=== PATIENT | male | born 1970 | race Caucasian/White ===

== ENCOUNTER → 2017-08-05 | Outpatient (CLI) | payer OTHER ==
--- NOTE | 2017-08-06 10:34 | MR ---
EXAMINATION TYPE: MR lumbar spine wo con DATE OF EXAM: 08/06/2017 6:15 AM COMPARISON: NONE HISTORY: lumbar pain, left leg pain Multiplanar, MultiSpin echo imaging of the lumbar spine was performed. There is a transitional vertebral segment with partial lumbarization of S1 suspected with rudimentary S1-S2 disc. Prior to any scheduled procedures radiographic correlation is advised. L1-L2: Normal disc appearance without desiccation. No herniation, protrusion or disc bulging. No ca nal stenosis is present. Foramina are patent bilaterally. L2-L3: Normal disc appearance without desiccation. No herniation, protrusion or disc bulging. No ca nal stenosis is present. Foramina are patent bilaterally. L3-L4: Normal disc appearance without desiccation. No herniation, protrusion or disc bulging. No ca nal stenosis is present. Foramina are patent bilaterally. L4-L5: Moderate disc desiccation. Circumferential disc bulge with mild effacement of the ventral thec al sac. No evidence for central stenosis or lateral recess stenosis. Mild facet joint arthropathy wit h mild left foraminal encroachment. L5-S1: Borderline to mild disc desiccation. Minimal posterior central disc bulge. No herniation protr usion or central stenosis. No lateral recess stenosis or foraminal encroachment. Lumbar segments are intact. No paraspinal masses are identified. Conus medullaris has a normal appe arance. IMPRESSION: 1. Transitional segment. 2. Degenerative disc disease greatest at L4-5 with posterior disc bulging as noted.
== END | disposition home or self-care (01) ==
LOC: RADMRIMAIN 20:57
PROVIDERS: ATTEND Family Medicine
DX: M51.16 Intervertebral disc disorders with radiculopathy, lumbar region (principal)
CPT/HCPCS: 72148

== ENCOUNTER → 2018-07-19 | Outpatient (CLI) | payer OTHER ==
--- NOTE | 2018-07-20 07:39 | ECHOS ---
STRESS ECHOCARDIOGRAM DATE OF SERVICE: 07/19/2018 INDICATIONS: Chest pain. MEDICATIONS: Flexeril. BASELINE HEART RATE: 51 BASELINE BLOOD PRESSURE: 100/55 MAXIMUM HEART RATE: 161 MAXIMUM BLOOD PRESSURE: 207/66 85% MPHR: 145 100% MPHR: 171 METS: 12.1 MAXIMUM STAGE REACHED: IV TOTAL EXERCISE TIME: 12 minutes CLINICAL INFORMATION: Baseline EKG revealed a normal sinus rhythm without significant ST-T changes. Patient walked for 12 minutes on a standard Shayan protocol, achieved a maximal heart rate of 161 beats per minute which is more than 85% of predicted maximal. Resting blood pressure was 100/55. Peak blood pressure was 207/66. EKG did not reveal any ST- segment changes to indicate ischemia. By EKG criteria, this is a negative stress test with excellent exercise capacity without angina or any arrhythmia. Baseline echo images revealed normal wall motion and wall thickening of all segments. At peak exercise, there was good augmentation of left ventricular wall motion and wall thickening of all segments suggesting that there is no evidence of stress-induced ischemia on this study. FINAL IMPRESSION: 1. Excellent exercise capacity with a negative stress test by EKG criteria. Patient walked for 12 minutes on a standard Shayan protocol. 2. Normal stress echocardiogram. MMODL / IJN: [id number] /
== END ==
LOC: RADNMMAIN 09:47
PROVIDERS: ATTEND Family Medicine
DX: R07.9 Chest pain, unspecified (principal)
CPT/HCPCS: 93351

== ENCOUNTER → 2018-08-03 | Outpatient (CLI) | payer OTHER ==
[2018-08-03 14:21] LABS: Basophils # (A) 0.1 k/uL (0-0.2); Basophils % (A) 1 %; Eosinophils # (A) 0.7 k/uL (0-0.7); Eosinophils % (A) 10 %; HCT 48.1 % (39.0-53.0); HGB 16.5 gm/dL (13.0-17.5); Lymphocytes # (A) 1.8 k/uL (1.0-4.8); Lymphocytes % (A) 27 %; MCH 31.1 pg (25.0-35.0); MCHC 34.3 g/dL (31.0-37.0); MCV 90.5 fL (80.0-100.0); Mean Platelet Volume 6.8; Monocytes # (A) 0.4 k/uL (0-1.0); Monocytes % (A) 6 %; Neutrophils # (A) 3.6 k/uL (1.3-7.7); Neutrophils % (A) 53 %; Platelet Count 273 k/uL (150-450); RBC 5.31 m/uL (4.30-5.90); RDW 13.1 % (11.5-15.5); WBC 6.9 k/uL (3.8-10.6)
[2018-08-03 20:07] LABS: Albumin 4.5 g/dL (3.80-4.90); Albumin/Globulin Ratio 2.37 (1.20-2.10); Anion Gap 9.7 mmol/L (4.00-12.00); Calcium 9.4 mg/dL (8.7-10.3); Carbon Dioxide 28.3 mmol/L (21.6-31.8); Globulin 1.9 g/dL (1.6-3.3); LDL Cholesterol,Calculated 117.2 mg/dL (0.0-131.0); Potassium 5.1 mmol/L (3.5-5.5); Total Bilirubin 2.2 mg/dL (0.3-1.2); Total Protein 6.4 g/dL (6.2-8.2); VLDL Calculation 18.8 mg/dL (5.00-40.00)
== END | disposition home or self-care (01) ==
LOC: LABWHC1 13:02
PROVIDERS: ATTEND Family Medicine
DX: Z00.00 Encounter for general adult medical examination without abnormal findings (principal); Z12.5 Encounter for screening for malignant neoplasm of prostate
CPT/HCPCS: 36415; 80053; 80061; 84153; 84443; 85025

== ENCOUNTER 2020-03-06 18:57 | Emergency (ER) | payer OTHER ==
[2020-03-06 19:11] VITALS: RESP 18
[2020-03-06] MEDS ORDERED: DIPH,PERTUS(ACELL)TETVAC-LF 0.5 ML VIAL IM ONE (19:29)
--- NOTE | 2020-03-06 19:48 | ED ---
General Adult HPI - General Chief complaint: Wound/Laceration Stated complaint: head lac Time Seen by Provider: 03/06/20 19:14 Source: patient, RN notes reviewed, old records reviewed Mode of arrival: ambulatory Limitations: no limitations - History of Present Illness Initial comments: 49-year-old male patient presents ED for evaluation. Patient reports that he was installing a piece of metal which fell hitting him in the head. Denies any loss of consciousness. Reports a mild headache. vision is at baseline. Denies any neck pain. Does not know date of last tetanus does have a laceration. Systemic: Pt denies fatigue, fever/chills, rash. Pt denies weakness, night sweats, weight loss. Neuro: Pt denies syncope or pre-syncope. HEENT: Pt denies ocular discharge or irritation, otalgia, rhinorrhea, pharyngitis or notable lymphadenopathy. Cardiopulmonary: Pt denies chest pain, SOB, heart palpitations, dyspnea on exertion. Abdominal/GI: Pt denies abdominal pain, n/v/d. : Pt denies dysuria, burning w/ urination, frequency/urgency. Denies new onset urinary or bowel incontinence. MSK: Pt denies myalgia, loss of strength or function in extremities. Neuro: Pt denies new onset weakness, paresthesias. - Related Data Home Medications Medication Instructions Recorded Confirmed No Known Home Medications 04/21/16 04/23/16 Allergies Allergy/AdvReac Type Severity Reaction Status Date / Time No Known Allergies Allergy Verified 03/06/20 19:10 Review of Systems ROS Statement: Those systems with pertinent positive or pertinent negative responses have been documented in the HPI. ROS Other: All systems not noted in ROS Statement are negative. Past Medical History Past Medical History: GERD/Reflux History of Any Multi-Drug Resistant Organisms: None Reported Past Surgical History: Appendectomy Additional Past Surgical History / Comment(s): EGD Past Anesthesia/Blood Transfusion Reactions: No Reported Reaction Past Psychological History: No Psychological Hx Reported Smoking Status: Never smoker Past Alcohol Use History: Occasional Past Drug Use History: None Reported - Past Family History Mother Family Medical History: No Reported History General Exam - General Exam Comments Initial Comments: Constitutional: NAD, AOX3, Pt has pleasant affect. HEENT: NC/AT, trachea midline, neck supple, no lymphadenopathy. External ears appear normal, without discharge. Mucous membranes moist. Eyes PERRLA, EOM intact. There is no scleral icterus. No pallor noted. Cardiopulmonary: RRR, no murmurs, rubs or gallops, no JVD noted. Lungs CTAB in anterior and posterior harris. No peripheral edema. Abdominal exam: Abdomen soft and non-distended. Abdomen non-tender to palpation in all 4 quadrants. No hepatosplenomegaly. No ecchymosis Neuro: CN II-XII intact. No nuchal rigidity. No raccon eyes, no coto sign, no hemotympanum. No cervical spinal tenderness. MSK: Sensation intact in upper and lower extremities. Full active ROM in upper and lower extremities, 5/5 stregnth. Limitations: no limitations Course Vital Signs 03/06/20 19:05 Temperature 98.4 F Pulse Rate 50 L Respiratory 18 Rate Blood Pressure 115/73 O2 Sat by Pulse 98 Oximetry Procedures - Laceration Laceration #1 Consent Obtained: verbal consent Site: scalp Size (cm): 4 Description: linear Depth: simple, single layer Pre-repair: wound explored, irrigated extensively Type of Sutures: other (staple) Size of Sutures: other (staple) Number of Sutures: 4 Patient Tolerated Procedure: well, no complications Medical Decision Making - Medical Decision Making 49-year-old male patient. See for evaluation after a piece of metal he was installing a ceiling fell down hit him in the head. Patient does have a 4 cm laceration which was irrigated and approximated with [address] brain C- spine did not display acute process. Neurologic exam is intact. Patient discharged with outpatient follow-up with primary care provider and return precautions. Case discussed with Dr. Farnsworth. Disposition Clinical Impression: Laceration Disposition: HOME SELF-CARE Condition: Stable Instructions (If sedation given, give patient instructions): Laceration (ED) Additional Instructions: Follow up with PCP tomorrow. Return to ED if condition worsens. Please return for staple removal: Scalp: 7 days Please monitor for signs and symptoms of infection including: redness, warmth, drainage, discharge. Please return to ED if these signs or symptoms occur, new signs or symptoms develop or if condition worsens in anyway. Is patient prescribed a controlled substance at d/c from ED?: No Referrals: Javed Walters MD [Primary Care Provider] - 1-2 days
--- NOTE | 2020-03-06 20:05 | CT ---
EXAMINATION TYPE: CT brain sandra quiñones DATE OF EXAM: 03/06/2020 COMPARISON: None HISTORY: Steel bar hit patient top of head. Head laceration. Denies LOC CT DLP: 1736.[address] of the brain was performed. The ventricles, basal cisterns and sulci overlying the cerebral convexities demonstrate minimal enlar gement. There is no evidence for intracranial hemorrhage or sulcal effacement. There is decreased attenuatio n about the periventricular white matter and deep white matter of both cerebral hemispheres, compatib le with chronic small vessel ischemia. No mass effects are seen. If symptoms persist consider MRI. Osseous calvarium is intact. Mild chronic sinusitis. IMPRESSION: 1. Age related atrophic and chronic small vessel ischemic change without acute intracranial process seen at this time. CT Cervical Spine: Unenhanced CT of the cervical spine was performed with bone and soft tissue window settings submitted . Coronal and sagittal reconstruction is obtained. There is normal alignment and prevertebral soft tissues. No evidence for acute cervical fracture . Scattered degenerative disc disease and spondylosis. Biapical scarring. IMPRESSION: 1. No evidence for acute fracture or subluxation of the cervical spine.
[2020-03-06] MEDS ORDERED: Acetaminophen-Codeine 300-30mg TAB PO STA (20:21)
[2020-03-06 20:43] VITALS: BP 115/86; PULSE 60; TEMP 97.9
== END 2020-03-06 20:43 | disposition home or self-care (01) ==
LOC: EC 18:57
DX: S01.01XA Laceration without foreign body of scalp, initial encounter (principal)
CPT/HCPCS: 12002; 70450; 72125; 90471; 90715; 99284

== ENCOUNTER → 2020-04-11 | Outpatient (CLI) | payer OTHER ==
--- NOTE | 2020-04-11 09:32 | CT ---
EXAMINATION TYPE: CT chest wo con DATE OF EXAM: 04/11/2020 COMPARISON: CT cervical spine March 06, 2020 HISTORY: Abn CT of cervical spine, pulmonary nodules per order. CT DLP: 515 mGycm. Automated Exposure Control for Dose Reduction was Utilized. TECHNIQUE: CT scan of the thorax is performed without IV contrast. FINDINGS: LUNGS: Mild biapical pleural/parenchymal scarring is redemonstrated with slightly nodular component i n the apices bilaterally. For reference 5 x 4 mm area coronal image 41. No suspicious pulmonary nodul es or masses identified bilaterally. No suspicious focal consolidation or groundglass opacity. No ple ural effusion or pneumothorax seen bilaterally. MEDIASTINUM: Lack of IV contrast is noted to limit evaluation for mediastinal and especially hilar ad enopathy. There are no definitive greater than 1 cm hilar or mediastinal lymph nodes. No cardiomega ly or pericardial effusion is seen. OTHER: Focal levoconvex scoliosis centered in the upper thoracic spine is redemonstrated. Spine is st raightened on sagittal images. IMPRESSION: No suspicious nodules or masses. Symmetric apical changes bilaterally favor postinflammat ory scarring. Consider follow-up chest CT in one year time to document stability.
== END | disposition home or self-care (01) ==
LOC: RADCTMAIN 08:12
PROVIDERS: ATTEND Family Medicine
DX: R91.8 Other nonspecific abnormal finding of lung field (principal)
CPT/HCPCS: 71250

== ENCOUNTER → 2021-05-24 | Outpatient (CLI) | payer OTHER ==
--- NOTE | 2021-05-25 00:51 | MR ---
EXAMINATION TYPE: MR shoulder RT wo con DATE OF EXAM: 05/24/2021 COMPARISON: None HISTORY: Right shoulder pain for 3 months. Multiplanar multiecho imaging of the right shoulder without contrast. Subscapularis tendon appears intact. Glenoid deion appear intact. The biceps tendon is intact. There is small amount of fluid in the subdeltoid bursa. There is slight thickening and increased sign al in the supraspinatus tendon. There is no retraction. Humeral head is intact. The AC joint is intact. There is no significant subacromial impingement. IMPRESSION: Mild increased signal within the supraspinatus tendon suggestive of some mild intrasubstance tearing. No full-thickness tear. Mild subdeltoid effusion consistent with some bursitis.
== END | disposition home or self-care (01) ==
LOC: RADMRIMAIN 21:36
PROVIDERS: ATTEND Physician Assistant
DX: M75.51 Bursitis of right shoulder (principal)

== ENCOUNTER 2022-11-26 07:08 | Observation (INO) | payer OTHER ==
[2022-11-26 07:15] VITALS: TEMP 97.9
[2022-11-26] MEDS ORDERED: MAG HYDROX/AL HYDROX/SIMETH 30 ML CUP PO STA (07:28)
[2022-11-26] MEDS ORDERED: ASPIRIN 81 MG PO STA (07:28)
[2022-11-26 07:53] LABS: Basophils # (A) 0.1 k/uL (0-0.2); Basophils % (A) 1 %; Eosinophils # (A) 0.4 k/uL (0-0.7); Eosinophils % (A) 6 %; HCT 46.1 % (39.0-53.0); Lymphocytes # (A) 1.4 k/uL (1.0-4.8); Lymphocytes % (A) 25 %; MCH 31.6 pg (25.0-35.0); MCHC 34.7 g/dL (31.0-37.0); MCV 91.1 fL (80.0-100.0); Mean Platelet Volume 7.3; Monocytes # (A) 0.3 k/uL (0-1.0); Monocytes % (A) 6 %; Neutrophils # (A) 3.4 k/uL (1.3-7.7); Neutrophils % (A) 60 %; Platelet Count 269 k/uL (150-450); RBC 5.06 m/uL (4.30-5.90); RDW 12.4 % (11.5-15.5); WBC 5.6 k/uL (3.8-10.6)
[2022-11-26 08:02] LABS: INR 1.1 (<1.2); Partial Thromboplastin Time 24.1 sec (22.0-30.0); Prothrombin Time 11.6 sec (9.0-12.0)
[2022-11-26 08:08] LABS: ALT 23 U/L (4-49); AST 23 U/L (17-59); African American GFR (CKD) >90 (>60 ml/min/1.73 sqM); Albumin 4.3 g/dL (3.5-5.0); Alkaline Phosphatase 63 U/L (38-126); Anion Gap 6 mmol/L; Blood Urea Nitrogen 12 mg/dL (9-20); Calcium 9.1 mg/dL (8.4-10.2); Carbon Dioxide 29 mmol/L (22-30); Chloride 104 mmol/L (98-107); Glucose 108 mg/dL (74-99); Lipase 87 U/L (23-300); Magnesium 1.9 mg/dL (1.6-2.3); Non-African American GFR(CKD) >90 (>60 ml/min/1.73 sqM); Potassium 4.1 mmol/L (3.5-5.1); Sodium 139 mmol/L (137-145); Total Protein 6.7 g/dL (6.3-8.2)
--- NOTE | 2022-11-26 08:10 | XR ---
EXAMINATION TYPE: XR chest 2V DATE OF EXAM: 11/26/2022 COMPARISON: NONE TECHNIQUE: PA and lateral views submitted. HISTORY: Chest Pain FINDINGS: The lungs are clear and there is no pneumothorax, pleural effusion, or focal pneumonia. Heart size normal and no overt failure. Osseous structures demonstrate hypertrophic and degenerative changes of the spine. IMPRESSION: 1. No acute process.
--- NOTE | 2022-11-26 08:27 | ED ---
Chest Pain HPI - General Chief Complaint: Chest Pain Stated Complaint: chest pain Time Seen by Provider: 11/26/22 07:17 Source: patient, RN notes reviewed Mode of arrival: ambulatory Limitations: no limitations - History of Present Illness Initial Comments: 52-year-old male presents emergency Department with chief complaint of chest pain. Patient states he has some symptoms yesterday in which he related this to eating some food. Patient states she does have reflux. He states he got better but woke this morning and started having discomfort again substernal chest pain. Patient states he had a stress test 9 years ago which was normal at that time. Patient states he has been excising of recent last few years. Patient denies any prior cardiac disease denies being a smoker. - Related Data Home Medications Medication Instructions Recorded Confirmed No Known Home Medications 04/21/16 11/26/22 Allergies Allergy/AdvReac Type Severity Reaction Status Date / Time No Known Allergies Allergy Verified 11/26/22 08:17 Review of Systems ROS Statement: Those systems with pertinent positive or pertinent negative responses have been documented in the HPI. ROS Other: All systems not noted in ROS Statement are negative. EKG Findings - EKG Comments: EKG Findings:: EKG performed at 17:22 sinus bradycardia rate of 57 VT 153 QRS 77 QT/QTC 403 /397 - EKG Results: EKG: interpreted by ALFREDO Past Medical History Past Medical History: GERD/Reflux History of Any Multi-Drug Resistant Organisms: None Reported Past Surgical History: Appendectomy Additional Past Surgical History / Comment(s): EGD Past Anesthesia/Blood Transfusion Reactions: No Reported Reaction Past Psychological History: No Psychological Hx Reported Smoking Status: Never smoker Past Alcohol Use History: Occasional Past Drug Use History: None Reported - Past Family History Mother Family Medical History: No Reported History General Exam Limitations: no limitations General appearance: alert, in no apparent distress Head exam: Present: atraumatic, normocephalic, normal inspection Eye exam: Present: normal appearance, PERRL, EOMI. Absent: scleral icterus, conjunctival injection, periorbital swelling Neck exam: Present: normal inspection. Absent: tenderness, meningismus, lymphadenopathy Respiratory exam: Present: normal lung sounds bilaterally. Absent: respiratory distress, wheezes, rales, rhonchi, stridor Cardiovascular Exam: Present: regular rate, normal rhythm, normal heart sounds. Absent: systolic murmur, diastolic murmur, rubs, gallop, clicks GI/Abdominal exam: Present: soft, normal bowel sounds. Absent: distended, tenderness, guarding, rebound, rigid Neurological exam: Present: alert Course Vital Signs 11/26/22 11/26/22 07:13 07:34 Temperature 97.9 F Pulse Rate 66 65 Respiratory 18 18 Rate Blood Pressure 134/84 131/85 O2 Sat by Pulse 99 Oximetry Chest Pain MDM - MDM Was pt. sent in by a medical professional or institution (, PA, RECEIVING AND PROCESSING SUPERVISOR, urgent care, hospital, or [facility]...) When possible be specific @ -[No] Did you speak to anyone other than the patient for history (EMS, parent, family, police, friend...)? What history was obtained from this source @ -[No] Did you review nursing and triage notes (agree or disagree)? Why? @ -[I reviewed and agree with nursing and triage notes] Were old charts reviewed (outside hosp., previous admission, EMS record, old EKG, old radiological studies, urgent care reports/EKG's, [facility] records)? Report findings @ -[No old charts were reviewed] Differential Diagnosis (chest pain, altered mental status, abdominal pain women, abdominal pain men, vaginal bleeding, weakness, fever, dyspnea, syncope, headache, dizziness, GI bleed, back pain, seizure, CVA, palpatations, mental health, musculoskeletal)? @ -[Differential Chest Pain: Stable Angina, Unstable Angina, STEMI, NSTEMI Aortic Dissection, Pneumothorax, Musculoskeletal, Esophageal Spasm GERD, Cholecystitis, Pancreatitis, Zoster, this is not meant to be an all-inclusive list. e] EKG interpreted by me (3pts min.). @ -[As above] X-rays interpreted by me (1pt min.). @ -[Chest x-ray shows no acute cardiopulmonary process] CT interpreted by me (1pt min.). @ -[None done] U/S interpreted by me (1pt. min.). @ -[None done] What testing was considered but not performed or refused? (CT, X-rays, U/S, labs)? Why? @ -[None] What meds were considered but not given or refused? Why? @ -[None] Did you discuss the management of the patient with other professionals (professionals i.e. , PA, RECEIVING AND PROCESSING SUPERVISOR, lab, RT, psych nurse, dialysis social worker, transmission maintenance supervisor, teacher, real estate officer, telehealth case manager)? Give summary @ -[Discussed case with [facility] physician Dr. Noland will be admitted for cardiac rule out including cardiology evaluation] Was smoking cessation discussed for >3mins.? @ -[No] Was critical care preformed (if so, how long)? @ -[No] Were there social determinants of health that impacted care today? How? (Homelessness, low income, unemployed, alcoholism, drug addiction, transportation, low edu. Level, literacy, decrease access to med. care, fdc, rehab)? @ -[No] Was there de-escalation of care discussed even if they declined (Discuss DNR or withdrawal of care, Hospice)? DNR status @ -[No] What co-morbidities impacted this encounter? (DM, HTN, Smoking, COPD, CAD, Cancer, CVA, ARF, Chemo, Hep., AIDS, mental health diagnosis, sleep apnea, morbid obesity)? @ -[None] Was patient admitted / discharged? Hospital course, mention meds given and route, prescriptions, significant lab abnormalities, going to OR and other pertinent info. @ -[Admitted patient still has complaints of chest pressure, substernal pain. Patient does have risk factors patiently admitted for cardiac rule out including echocardiogram.] Undiagnosed new problem with uncertain prognosis? @ -[No] Drug Therapy requiring intensive monitoring for toxicity (Heparin, Nitro, Insulin, Cardizem)? @ -[No] Were any procedures done? @ -[No] Diagnosis/symptom? @ -[Chest pain] Acute, or Chronic, or Acute on Chronic? @ -Acute Uncomplicated (without systemic symptoms) or Complicated (systemic symptoms)? @ -Uncomplicated Side effects of treatment? @ -[No] Exacerbation, Progression, or Severe Exacerbation? @ -[No] Poses a threat to life or bodily function? How? (Chest pain, [place], MA, pneumonia, PE, COPD, DKA, ARF, appy, cholecystitis, CVA, Diverticulitis, Homicidal, Suicidal, threat to staff... and all critical care pts) @ -[yes cardiac arrest risk Disposition Clinical Impression: Chest pain Disposition: ADMITTED IP TO THIS HOSP Referrals: Javed Walters MD [Primary Care Provider] - 1-2 days Time of Disposition: 09:01
[2022-11-26] MEDS ORDERED: FAMOTIDINE 20 MG/2 ML VIAL IV STA (09:00)
[2022-11-26] MEDS ORDERED: ONDANSETRON 4 MG/2 ML VIAL IVP STA (09:00)
[2022-11-26] MEDS ORDERED: NITROGLYCERIN SL TABS 0.4 MG TAB SUBLINGUAL PRN (09:20)
[2022-11-26] MEDS ORDERED: CALCIUM CARBONATE 500 MG CHEWABLE PO PRN (11:33)
--- NOTE | 2022-11-26 11:33 | P.HPIM ---
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 Patient says that he hasn't episode of burning chest pain yesterday which she said felt similar to his acid reflux. He said he took some medication slept upright and it seemed to resolve his issue area however, this morning upon driving to work, he started to feel a pressure-like sensation at the base of his chest. He does not describe any radiation to the jaw, to the shoulder. He denies associated symptoms of nausea, vomiting, diaphoresis, palpitations, dyspnea. He further denies fevers, chills, cough, abdominal pain, constipation, diarrhea, dysuria, dyschezia, numbness/weakness of extremities. In the emergency room, patient was afebrile, 123/80, heart rate 53, 97% on room air. CBC is unremarkable. Chemistries are unremarkable. Liver function tests are unremarkable. Initial troponin is less than 0.012, then trended to less than 0.012. Coags are unremarkable. EKG showed sinus bradycardia with no evidence of ischemia, normal axis. Chest x-ray showed clear parenchyma bilaterally, normal sized heart, no evidence of overt heart failure. Case was discussed emergency room provider and decision was made to admit the patient to observation for chest pain rule out. All Systems reviewed and pertinent positives and negatives noted in HPI, all other symptoms are negative Gen: in no apparent distress, resting comfortably in bed Eyes: PERRL, no scleral injection or icterus HENT: normocephalic, atraumatic, good hearing acuity, moist mucous membranes Neck: no tracheal deviation, full range of motion Resp: good air exchange, breathing comfortably with no accessory muscle use, no tactile fremitus CVS: good distal perfusion x 4, no pitting edema GI: soft, NTTP, ND, no hepatosplenomegaly : no suprapubic tenderness, no CVAT, aburto catheter not present MSK: no clubbing, no cyanosis, no noted contractures of extremities Skin: no noted rashes, petechiae; temperature of skin is appropriate Neuro: moving all extremities without signs of weakness, CN II-XII intact Psych: cooperative, euthymic mood, insight and judgment intact Labs and imaging were reviewed as above Assessment: Chest pain, atypical GERD without esophagitis Plan: Vital signs reviewed and noted in the HPI Lab work reviewed and noted in the HPI EKG and CXR are personally interpreted and noted in the HPI Case was discussed with the Emergency Room provider and decision was made to admit the patient for ACS rule out CBC, basic metabolic panel, magnesium for tomorrow TSH, lipid panel, A1c for tomorrow Trend troponins Start aspirin 81 mg daily Nitroglycerin 0.4 mg sublingual every 5 minutes when necessary for chest pain Cardiology consulted by the emergency room Echocardiogram ordered Tums 500 mg 4 times a day when necessary for GERD Patient is full code Past Medical History Past Medical History: GERD/Reflux History of Any Multi-Drug Resistant Organisms: None Reported Past Surgical History: Appendectomy Additional Past Surgical History / Comment(s): EGD Past Anesthesia/Blood Transfusion Reactions: No Reported Reaction Past Psychological History: No Psychological Hx Reported Smoking Status: Never smoker Past Alcohol Use History: Occasional Past Drug Use History: None Reported - Past Family History Mother Family Medical History: No Reported History Medications and Allergies Home Medications Medication Instructions Recorded Confirmed Type No Known Home Medications 04/21/16 11/26/22 History Allergies Allergy/AdvReac Type Severity Reaction Status Date / Time No Known Allergies Allergy Verified 11/26/22 08:17 Physical Exam Osteopathic Statement: *. No significant issues noted on an osteopathic structural exam other than those noted in the History and Physical/Consult. Vitals: Vital Signs Temp Pulse Resp BP Pulse Ox 11/26/22 10:10 53 L 20 123/80 97 11/26/22 09:34 62 20 121/81 11/26/22 08:30 113/81 11/26/22 07:34 65 18 131/85 11/26/22 07:13 97.9 F 66 18 134/84 99 Intake and Output 11/25/22 11/26/22 11/26/22 22:59 06:59 14:59 Other: Weight 83.915 kg Results CBC & Chem 7: 11/26/22 07:46 11/26/22 07:46 Labs: Abnormal Lab Results - Last 24 Hours (Table) 11/26/22 Range/Units 07:46 Glucose 108 H (74-99) mg/dL Total Bilirubin 2.0 H (0.2-1.3) mg/dL
--- NOTE | 2022-11-26 12:40 | CA ---
Transthoracic Echo Report Name: Rich Valentine Age: 52 Gender: M : 1970 Exam Date: 11/26/2022 11:17 Exam Location: [place] [facility] Ht (in): 72 Wt (lb): 185 Ordering Physician: Jeronimo Salazar Attending/Referring Phys: [id number], [employer] Ijeoma Deras, LORRIE Procedure CPT: Indications: Chest Pain Cardiac Hx: Technical Quality: Good Contrast 1: Total Dose (mL): Contrast 2: Total Dose (mL): MEASUREMENTS (Male / Female) Normal Values 2D ECHO LV Diastolic Diameter PLAX 4.5 cm 4.2 - 5.9 / 3.9 - 5.3 cm LV Systolic Diameter PLAX 3.1 cm IVS Diastolic Thickness 0.8 cm 0.6 - 1.0 / 0.6 - 0.9 cm LVPW Diastolic Thickness 1.0 cm 0.6 - 1.0 / 0.6 - 0.9 cm LV Relative Wall Thickness 0.4 RV Internal Dim ED PLAX 3.0 cm LA Systolic Diameter LX 3.0 cm 3.0 - 4.0 / 2.7 - 3.8 cm LV Diastolic Volume MOD 4C 89.2 cm??? LV Systolic Volume MOD 4C 37.6 cm??? LV Ejection Fraction MOD 4C 57.8 % LV Diastolic Length 4C 7.1 cm LV Systolic Length 4C 5.9 cm LV Diastolic Volume MOD 2C 83.5 cm??? LV Systolic Volume MOD 2C 40.3 cm??? LV Ejection Fraction MOD 2C 51.8 % LV Diastolic Length 2C 8.9 cm LV Systolic Length 2C 7.4 cm LA Volume 47.3 cm??? 18 - 58 / 22 - 52 cm??? M-MODE Aortic Root Diameter MM 3.0 cm MV E Point Septal Separation 0.3 cm AV Cusp Separation MM 2.1 cm DOPPLER AV Peak Velocity 116.3 cm/s AV Peak Gradient 5.4 mmHg MV Area PHT 3.1 cm??? Mitral E Point Velocity 76.6 cm/s Mitral A Point Velocity 66.4 cm/s Mitral E to A Ratio 1.2 MV Deceleration Time 241.0 ms MV E' Velocity 9.5 cm/s Mitral E to MV E' Ratio 8.1 TR Peak Velocity 203.2 cm/s TR Peak Gradient 16.5 mmHg Right Ventricular Systolic Press 21.0 mmHg FINDINGS Left Ventricle Left ventricular ejection fraction is estimated at 55-60 %. Left ventricular cavity size normal. Left ventricular wall thickness normal. Normal left ventricular wall motion. Right Ventricle Normal right ventricular size and function. Right ventricular systolic pressure within normal limits. Right Atrium Normal right atrial size. Left Atrium Normal left atrial size. Mitral Valve Structurally normal mitral valve. No mitral stenosis, regurgitation or prolapse. Aortic Valve Trileaflet aortic valve. No aortic valve stenosis or regurgitation. Tricuspid Valve Structurally normal tricuspid valve. Trace to mild tricuspid regurgitation. Pulmonic Valve Structurally normal pulmonic valve. Pericardium Normal pericardium. No pericardial effusion. Aorta Normal size aortic root and proximal ascending aorta. CONCLUSIONS Normal LV size and systolic function. No significant abnormality on the Doppler exam. No pericardial effusion Previewed by: Dr. Deirdre Ureña MD (Electronically Signed) Final Date: 26 Nov 2022 12:39
--- NOTE | 2022-11-26 13:24 | P.DS ---
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 In the emergency room, patient was afebrile, 123/80, heart rate 53, 97% on room air. CBC is unremarkable. Chemistries are unremarkable. Liver function tests are unremarkable. Initial troponin is less than 0.012, then trended to less than 0.012. Coags are unremarkable. EKG showed sinus bradycardia with no evidence of ischemia, normal axis. Chest x-ray showed clear parenchyma bilat erally, normal sized heart, no evidence of overt heart failure. Case was discussed emergency room provider and decision was made to admit the patient to observation for chest pain rule out. He underwent echocardiogram which was reported as showing no WMA. He was seen and cleared by cardiology and recommended for PCP f/u with outpatient cardiac stress testing arranged by primary care physician. Gen: in no apparent distress, resting comfortably in bed Eyes: PERRL, no scleral injection or icterus HENT: normocephalic, atraumatic, good hearing acuity, moist mucous membranes Neck: no tracheal deviation, full range of motion Resp: good air exchange, breathing comfortably with no accessory muscle use, no tactile fremitus CVS: good distal perfusion x 4, no pitting edema GI: soft, NTTP, ND, no hepatosplenomegaly : no suprapubic tenderness, no CVAT, aburto catheter not present MSK: no clubbing, no cyanosis, no noted contractures of extremities Skin: no noted rashes, petechiae; temperature of skin is appropriate Neuro: moving all extremities without signs of weakness, CN II-XII intact Psych: cooperative, euthymic mood, insight and judgment intact Patient Condition at Discharge: Good Plan - Discharge Summary New Discharge Prescriptions: No Action No Known Home Medications Discharge Medication List No Known Home Medications 04/21/16 [History] Follow up Appointment(s)/Referral(s): Javed Walters MD [Primary Care Provider] - 1-2 days Activity/Diet/Wound Care/Special Instructions: Please have your primary care physician arrange for a cardiac stress test Discharge Disposition: HOME SELF-CARE
--- NOTE | 2022-11-26 13:37 | P.CRDCN ---
History of Present Illness Consult date: 11/26/22 Consult reason: chest pain History of present illness: History of present illness: This is a 52-year-old male with no previous cardiac history. Patient is very athletic and runs a marathon on a yearly basis. He developed pressure in his chest after he slept in his truck. He also felt that his throat was swollen. Patient is seen today in the emergency center waiting for a bed on the observation unit. He is status post Pepcid, aspirin, and Maalox. EKG sinus bradycardia Chest x-ray: No acute process CBC normal. INR 1.1. Electrolytes and renal function normal. Glucose 108. Total bilirubin 2. Liver function tests normal. Troponin negative 2. Lipase 87 Echocardiogram: Normal LV size and systolic function. No significant abnorma lity on Dopplers exam. Pericardial effusion. Home cardiac medications: None Review Of Systems: At the time of my evaluation: Constitutional: No fever, no chills. No weakness, fatigue or lethargy. EENT: No headache. No dizziness. Lungs: No shortness of breath, cough, no sputum production. No wheezing. Cardiovascular: No chest pain, no lower extremity edema. No palpitations. No paroxysmal nocturnal dyspnea. No orthopnea. No lightheadedness or dizziness. No syncopal episodes. Abdominal: No abdominal pain. No nausea, vomiting. Musculoskeletal: No myalgias. Neurologic: No aphasia. No facial droop. No change in mentation. No head injury. No headache. Physical examination: Gen: This is a 52-year-old male, resting ER stretcher and appears to be comfortable and in no acute distress VS: reviewed HEENT: Head is atraumatic, normocephalic. Pupils equal, round. Sclerae is anicteric. NECK: Supple. No JVD. . LUNGS: Clear to auscultation. No wheezes or rhonchi. No intercostal ret ractions. HEART: Regular rate and rhythm. No murmur. ABDOMEN: Soft No tenderness. EXTREMITIES: No pedal edema. No calf tenderness. NEUROLOGICAL: Patient is awake, alert and oriented x3. Assessment: Chest pain, acute coronary syndrome ruled out Plan: Patient is cleared for discharge home and may follow up with his PCP for outpatient stress testing. Thank you kindly for this consultation. Nurse practitioner note has been reviewed, I agree with documented findings and plan of care. Patient was seen and examined. Past Medical History Past Medical History: GERD/Reflux History of Any Multi-Drug Resistant Organisms: None Reported Past Surgical History: Appendectomy Additional Past Surgical History / Comment(s): EGD Past Anesthesia/Blood Transfusion Reactions: No Reported Reaction Past Psychological History: No Psychological Hx Reported Smoking Status: Never smoker Past Alcohol Use History: Occasional Past Drug Use History: None Reported - Past Family History Mother Family Medical History: No Reported History Medications and Allergies Home Medications Medication Instructions Recorded Confirmed Type No Known Home Medications 04/21/16 11/26/22 History Allergies Allergy/AdvReac Type Severity Reaction Status Date / Time No Known Allergies Allergy Verified 11/26/22 08:17 Physical Exam Vitals: Vital Signs Temp Pulse Resp BP Pulse Ox 11/26/22 10:10 53 L 20 123/80 97 11/26/22 09:34 62 20 121/81 11/26/22 08:30 113/81 11/26/22 07:34 65 18 131/85 11/26/22 07:13 97.9 F 66 18 134/84 99 Intake and Output 11/25/22 11/26/22 11/26/22 22:59 06:59 14:59 Other: Weight 83.915 kg Results 11/26/22 07:46 11/26/22 07:46 Cardiac Enzymes 11/26/22 11/26/22 11/26/22 Range/Units 07:46 07:46 09:36 AST 23 (17-59) U/L Troponin I <0.012 <0.012 (0.000-0.034) ng/mL Coagulation 11/26/22 Range/Units 07:46 PT 11.6 (9.0-12.0) sec APTT 24.1 (22.0-30.0) sec CBC 11/26/22 Range/Units 07:46 WBC 5.6 (3.8-10.6) k/uL RBC 5.06 (4.30-5.90) m/uL Hgb 16.0 (13.0-17.5) gm/dL Hct 46.1 (39.0-53.0) % Plt Count 269 (150-450) k/uL Comprehensive Metabolic Panel 11/26/22 Range/Units 07:46 Sodium 139 (137-145) mmol/L Potassium 4.1 (3.5-5.1) mmol/L Chloride 104 (98-107) mmol/L Carbon Dioxide 29 (22-30) mmol/L BUN 12 (9-20) mg/dL Creatinine 0.79 (0.66-1.25) mg/dL Glucose 108 H (74-99) mg/dL Calcium 9.1 (8.4-10.2) mg/dL AST 23 (17-59) U/L ALT 23 (4-49) U/L Alkaline Phosphatase 63 (38-126) U/L Total Protein 6.7 (6.3-8.2) g/dL Albumin 4.3 (3.5-5.0) g/dL Current Medications Generic Name Dose Route Start Last Admin Trade Name Freq PRN Reason Stop Dose Admin Aspirin 325 mg 11/27/22 09:00 Aspirin 325 Mg Tab PO DAILY REBECA Nitroglycerin 0.4 mg 11/26/22 09:20 Nitroglycerin Sl Tabs 0.4 Mg Tab SUBLINGUAL Q5M PRN Chest Pain Intake and Output 11/25/22 11/26/22 11/26/22 22:59 06:59 14:59 Other: Weight 83.915 kg Patient Weight 11/27/22 06:59 Weight 83.915 kg 11/26/22 07:46 11/26/22 07:46
[2022-11-26 14:03] VITALS: BP 117/79; PULSE 57; RESP 18
[2022-11-27] MEDS ORDERED: ASPIRIN 325 MG TAB PO SCH (09:00)
[2022-11-27] MEDS ORDERED: ASPIRIN 81 MG PO SCH (09:00)
== END 2022-11-26 14:08 | disposition home or self-care (01) ==
LOC: EC 07:08 → 6NMEDSUR 09:05
PROVIDERS: ADMIT Internal Medicine; ATTEND Internal Medicine
DX: R07.89 Other chest pain (principal); K21.9 Gastro-esophageal reflux disease without esophagitis; R00.1 Bradycardia, unspecified; I31.39 Other pericardial effusion (noninflammatory); I07.1 Rheumatic tricuspid insufficiency
CPT/HCPCS: 36415; 71046; 80053; 83690; 83735; 84484; 85025; 85610; 85730; 93005; 93306; 96374; 99285

== ENCOUNTER → 2024-05-30 | Outpatient (CLI) | payer OTHER ==
--- NOTE | 2024-05-30 16:07 | CT ---
EXAMINATION TYPE: CT heart w calcium score DATE OF EXAM: 05/30/2024 COMPARISON: CLINICAL INDICATION: Male, 53 years old with history of Z13.6 ENCOUNTER FOR SCREENING FOR CARDIOVASCU LAR DISORDERS; PHH, Cardiovascular disorder screening, no hx, no family hx. TECHNIQUE: Prospective Gating was used. Slice thickness: 3mm. Density threshold (HU): 130, Pixel threshold: 3, Algorithm: discrete. CT DLP: 67.[address] CTDI: mGy Automated exposure control for dose reduction was used. FINDINGS: CT CALCIUM SCORING Coronary calcium is a marker for plaque (fatty deposits) in a blood vessel or atherosclerosis (harden ing of the arteries). The presence and amount of calcium detected in a coronary artery by the CT sca n, indicates the presence and amount of atherosclerotic plaque. These calcium deposits appear years before the development of heart disease symptoms such as chest pain and shortness of breath. A calcium score is computed for each of the coronary arteries based upon the volume and density of th e calcium deposits. This can be referred to as your calcified plaque burden. It does not correspond directly to the percentage of narrowing in the artery but does correlate with the severity of the un derlying coronary atherosclerosis. RESULTS Region: LM Calcium Score ([place]): 0 Volume (mm3): 0 Mass (g): 0 Region: RCA Calcium Score ([place]): 0 Volume (mm3): 0 Mass (g): 0 Region: LAD Calcium Score ([place]): 0 Volume (mm3): 0 Mass (g): 0 Region: CX Calcium Score ([place]): 0 Volume (mm3): 0 Mass (g): 0 Region: PDA Calcium Score ([place]): 0 Volume (mm3): 0 Mass (g): 0 Total: Calcium Score ([place]): 0 Volume (mm3): 0 Mass (g): 0 TOTAL CALCIUM SCORE: 0 Few groundglass opacities are seen in the left upper lung. No solid pulmonary nodules/masses identifi ed. IMPRESSION: 1. Calcium Score: 0 2. Implication: No identifiable plaque. 3. Risk of Coronary Artery Disease: Very low, generally less than 5%. 4. Groundglass opacities in left upper lung possibly related to infectious/inflammatory process. Con fluid power mechanic short-term follow-up in 3-6 months to ensure stability/resolution. CALCIUM SCORE IMPLICATION RISK OF C ORONARY ARTERY DISEASE 0 No identifiable plaque Very low, generally less than 5% 1-10 Minimal identifiable plaque Very unlikely, less than 10% 11-100 Definite, at least mild atherosclerotic plaque Mild or m inimal coronary narrowings likely 101-400 Definite, at least moderate atherosclerotic plaque Mild coronary ar connie disease highly likely, significant narrowing possible 401 or Higher Extensive atherosclerotic plaque High lik elihood of at least one significant coronary narrowing [facility], , 05/30/2024 4:04 PM
== END | disposition home or self-care (01) ==
LOC: RADCTMAIN 08:55
PROVIDERS: ATTEND Family Medicine
DX: Z13.6 Encounter for screening for cardiovascular disorders (principal); I25.10 Atherosclerotic heart disease of native coronary artery without angina pectoris
CPT/HCPCS: 75571

== ENCOUNTER → 2024-10-10 | Outpatient (CLI) | payer OTHER ==
--- NOTE | 2024-10-10 12:52 | US ---
EXAMINATION TYPE: US scrotum with doppler. DATE OF EXAM: 10/10/2024 COMPARISON: NONE CLINICAL INDICATION: Male, 54 years old with history of N50.819TESTICULAR PAIN, UNSPECIFIED; Pain x 1 year intermittently, pt states it is like a "pulling feeling". Worse on the left side. Hx vasectomy. TECHNIQUE: Grayscale, color Doppler and spectral Doppler imaging of the scrotum. FINDINGS: EXAM MEASUREMENTS: TESTICLES: Right Testicle: 4.1 x 2.9 x 2.0 cm Left Testicle: 4.1 x 3.1 x 2.1 cm EPIDIDYMIS HEAD: Right Epididymis: 0.9 x 1.1 x 1.0 cm Left Epididymis: 0.7 x 0.9 x 1.1 cm Doppler performed to assess for testicular vascularity; good bilateral color flow and spectral wavefo miguel are seen. Presence of hydroceles: Yes. Right: 4.6 x 3.6 x 0.8 cm. Left: 2.7 x 3.0 x 1.1 cm. Presence of varicoceles: *Prominent vessels seen lateral to left testicle: 3.4 mm. IMPRESSION: Small bilateral scrotal fluid collection or hydroceles. Satisfactory symmetric blood flow to both testicles is noted. Suspect left-sided varicocele. [facility], , 10/10/2024 12:49 PM
--- NOTE | 2024-10-10 13:13 | CT ---
EXAMINATION TYPE: CT chest wo con DATE OF EXAM: 10/10/2024 12:57 PM COMPARISON: Multiple CTs of the chest with most recent on 04/11/2020. CLINICAL INDICATION: Male, 54 years old with history of R91.1 SPN; PHH, pulmonary nodule. TECHNIQUE: Multiple axial images were obtained through the chest. Sagittal and coronal reformats were created for review. MIP was performed on a separate workstation. Contrast used: mL of (None if empty) Oral contrast used: (None if empty) CT DLP: 495 mGycm, Automated exposure control for dose reduction was used. FINDINGS: LUNGS/ PLEURA: No focal consolidation, pneumothorax or pleural effusion. Apical scarring changes bila terally. Not significantly changed from prior. AIRWAY: Patent and unremarkable. HEART: Size within normal limits. No significant coronary artery calcifications. MEDIASTINUM: No gross evidence of adenopathy. VASCULATURE: No aortic aneurysm. MUSCULOSKELETAL: No acute osseous abnormalities SOFT TISSUES/LYMPH NODES: Unremarkable. LOWER NECK: No significant findings. UPPER ABDOMEN: Simple appearing left renal cortical cyst measuring 27 mm. No follow-up recommended. H epatic simple appearing probable cyst measuring 8 mm.. No follow-up recommended. IMPRESSION: 1. No evidence for acute process. 2. No clinically significant pulmonary nodules. Follow up recommendations for incidental pulmonary nodules, if there are any, are per [employer] or [employer]. https://radiopaedia.org/articles/zszcuxkxue-ackwrqa-rxhosfyqw-bjalzy-xtcgujkidudayow-8?lang=us [facility], , 10/10/2024 1:10 PM
== END | disposition home or self-care (01) ==
LOC: RADUSWWP 12:02
PROVIDERS: ATTEND Family Medicine
DX: R91.1 Solitary pulmonary nodule (principal); N43.2 Other hydrocele; N28.1 Cyst of kidney, acquired
CPT/HCPCS: 71250; 76870; 93975